=== PATIENT | male | born 1960 | race Caucasian/White ===

== ENCOUNTER 2024-09-20 16:05 | Emergency (ER) | payer BC, SELFPAY ==
[2024-09-20 16:08] VITALS: BP 109/66
[2024-09-20 16:12] VITALS: BMI 30.8
[2024-09-20 16:24] LABS: % Basophils 0.4 % (0-2); % Immature Granulocytes 0.5 % (0-0.5); % Lymphocytes 29.1 % (20.5-51.1); Absolute Basophils 0.1 10^3/uL (0-0.2); Absolute Eosinophils 0.1 10^3/uL (0-0.7); Absolute Immature Granulocytes 0.1 10^3/uL (0-0.05); Absolute Lymphocytes 3.5 10^3/uL (1.2-3.4); Absolute Neutrophils 7.4 10^3/uL (1.4-6.5); Hematocrit 46.9 % (39.0-52.0); Hemoglobin 15.7 g/dL (13.0-18.0); Mean Corp Hgb Conc. 33.5 g/dL (33.0-37.0); Mean Corpuscular Hgb 30.3 pg (27.0-31.0); Mean Corpuscular Volume 90.4 fL (80.0-94.0); Nucleated Red Blood Cells % 0 % (-); Platelet Count 321 10^3/uL (130-400); Red Blood Cell Count 5.19 10^6/uL (4.70-6.10); Red Cell Dist. Width 12.1 % (11.5-14.5); White Blood Cell Count 12.1 10^3/uL (4.8-10.8)
--- NOTE | 2024-09-20 16:25 | ED.GENMED ---
History of Present Illness
General
Chief Complaint: Fainting/Passed Out
Source: patient
Time Seen by Provider: 09/20/24 16:20
History of Present Illness
History of Present Illness:
63-year-old male presents to the emergency room after having a syncopal episode while golfing. Patient was on the [address] home when he began feeling dizzy, lightheaded and have some change in vision. Patient sat in his golf cart to try to recover.
He does not recall but he was told he passed out. 911 was called. Patient arrives with ice packs on his shoulders. He is awake and states he is feeling much better than he was. He did have 1 beer today. He states he drank a bottle of water and
a couple bottles of Gatorade as well. Of note it is about 90 degrees with high humidity today. Patient denies any chest pain or shortness of breath.
Past History
Past History
ED Past Medical History: HTN and Hypercholesterolemia
ED Past Surgical History: Other
Social History
Tobacco: Non-smoker
Drug: None
Personal:
Living: with family
Employment: Employed
Family History
Family History: Other
Phy Exam
Physical Exam
Physical Exam:
General: Awake, Alert, Oriented X3. No acute distress.
Vitals: unremarkable
Head: Atraumatic
Eyes: Pupils equal, EOMI
Throat: Airway intact, no exudates, dry mucosa
Neck: Trachea midline
Lungs: Clear and equal b/l
Heart: Regular rate, no murmurs
Abd: Soft, Nontender, No pulsatile mass
Neuro: Nonfocal
Skin: Warm, dry, no rash
Extremities: pulses equal b/l, no edema
Course
Orders/Labs/Results
Orders:
Orders
09/20/24 16:07
EKG [Electrocardiogram (*1)] Urgent
Reason for Study: Syncope
EKG- Treatment ONCE
09/20/24 16:16
CBC/With Diff [Complete Blood Count/With Diff] Urgent
CMP [Comprehensive Metabolic Panel] Urgent
09/20/24 16:24
0.9% Sodium Chloride 1000 ml [Nss] 1,000 ml IV BOLUS
Abnormal Lab Results
09/20/24
16:16
WBC 12.1 H 10^3/uL
(4.8-10.8)
Abs Immat Gran (auto) 0.1 H 10^3/uL
(0-0.05)
Absolute Neuts (auto) 7.4 H 10^3/uL
(1.4-6.5)
Absolute Lymphs (auto) 3.5 H 10^3/uL
(1.2-3.4)
Absolute Monos (auto) 1.0 H 10^3/uL
(0.1-0.6)
Sodium 146 H mmol/L
(135-145)
Chloride 108 H mmol/L
(98-107)
BUN 25 H mg/dl
(9-20)
Creatinine 2.0 H mg/dL
(0.7-1.3)
Calcium 10.7 H mg/dl
(8.4-10.2)
AST 73 H U/L
(17-59)
ALT 83 H U/L
(0-50)
Alkaline Phosphatase 35 L U/L
(38-126)
Total Protein 9.0 H g/dl
(6.3-8.2)
Albumin 5.5 H g/dl
(3.5-5.0)
09/20/24 16:16
09/20/24 16:16
Vital Signs
Initial and Last Documented VS:
Initial Vital Signs
Pulse Resp BP Pulse Ox
67 15 109/66 98
09/20/24 16:08 09/20/24 16:08 09/20/24 16:08 09/20/24 16:08
Last Documented Vital Signs
Temp Pulse Resp BP Pulse Ox
97.7 F 68 34 124/80 100
09/20/24 16:17 09/20/24 16:16 09/20/24 16:16 09/20/24 18:00 09/20/24 18:00
MDM/Problems Addressed
Differential Diagnosis Includes:
Dehydration, heat exhaustion, dysrhythmia, electrolyte abnormality
MDM/Problems Addressed:
Patient [place]. He is awake and alert on my arrival though feels exhausted. He received IV hydration and some ice packs here. Over time he began to feel much better. On reevaluation the patient feels
essentially back to baseline. Stable for discharge home. Encouraged to drink lots of fluid including an electrolyte containing beverage.
Chronic conditions affecting care: HTN
*Pulse Oximetry
SaO2: 98
Oxygen Mode of Delivery: Room air
Patient hypoxic: no
*EKG
Interpreted by ED Provider?: Yes
Heart Rate: 69
Rate: normal
Rhythm: sinus
[place]: normal axis
Interval: normal interval
QRS Pattern: normal QRS
Ischemia: no ischemia
*[employer] Interpretation
Rate: normal
Interpretation: normal
Heart Rate: 69
Rhythm: sinus
*Critical Care Note
Total Time (30-74mins, 75-104mins- exclusive of procedures): Not Applicable
ED Attending Note
-
Portions of this chart may have been created with voice recognition software.� Occasional wrong word or��sound alike� substitutions may have occurred due to the inherent limitations of voice recognition software.
Discharge Plan
Departure
Patient Disposition: Home (Routine Discharge)
Date of Disposition: 09/20/24
Time of Disposition: 18:08
Patient with high blood pressure during this ER visit?: No
Condition: Good
Discharge Problem:
Heat exhaustion
Instructions: Heat Illness ED
Prescriptions:
No Action
paroxetine HCl 10 MG tablet
10 mg PO DAILY
atorvastatin 20 MG tablet
20 mg PO QPM
sulfamethoxazole-trimethoprim 1 TABLET tablet
1 tab PO BID
lisinopril 10 MG tablet
10 mg PO DAILY
hydrochlorothiazide 25 MG tablet
25 mg PO DAILY
fenofibrate nanocrystallized 145 MG tablet
145 mg PO DAILY
amoxicillin-pot clavulanate 1 TABLET tablet
1 tab PO Q12 7 Days Qty: 13 0RF
dicyclomine 20 MG tablet
20 mg PO QIDPRN PRN (Reason: pain) Qty: 20 0RF
Referrals:
Cherri Huber DO [Family Provider, Family Practice]
Interventions
Interventions:
*Risk Screen - Suicide Last Done: 09/20/24 16:08
*General Assessment Last Done: 09/20/24 16:08
*Neglect/Abuse Screening Last Done: 09/20/24 16:08
*ED- Fall Risk Assessment Last Done: 09/20/24 16:08
*ED COVID-19 Vaccine History Last Done: 09/20/24 16:08
*Nursing Disposition Last Done: 09/20/24 18:30
ED- Cardiac Assessment Last Done: 09/20/24 16:13
ED- Neurological Assessment Last Done: 09/20/24 16:13
Discharge Date and Time
Discharge Date/Time: 09/20/24 18:35
Print Language: KHMER
[2024-09-20] MEDS: NSS 1000 IV (16:26)
[2024-09-20 16:38] LABS: ALT (SGPT) 83 U/L (0-50); AST (SGOT) 73 U/L (17-59); Albumin 5.5 g/dl (3.5-5.0); Alkaline Phosphatase 35 U/L (38-126); Blood Urea Nitrogen 25 mg/dl (9-20); Calcium 10.7 mg/dl (8.4-10.2); Carbon Dioxide 22 mmol/L (22-30); Chloride 108 mmol/L (98-107); Estimated Creatinine Clearance 52 ml/min; Glucose 94 mg/dl (70-99); Potassium 3.8 mmol/L (3.5-5.1); Sodium 146 mmol/L (135-145); eGFR 37.04
[2024-09-20 17:00] VITALS: BP 126/61
[2024-09-20 18:00] VITALS: BP 124/80
== END 2024-09-20 18:35 | disposition home or self-care (01) ==
LOC: EMR 16:05
PROVIDERS: EMERGENCY PHYSICIAN Emergency Medicine; FAMILY PHYSICIAN Family Medicine
DX: R55 Syncope and collapse (principal); T67.5XXA Heat exhaustion, unspecified, initial encounter; E78.00 Pure hypercholesterolemia, unspecified; I10 Essential (primary) hypertension
CPT/HCPCS: 96360; 99284; 80053; 85025; 93005